=== PATIENT | male | born 1985 | race Caucasian/White ===

== ENCOUNTER 2022-07-16 06:57 | Emergency (ER) | payer OTHER, SELFPAY ==
[2022-07-16 07:05] VITALS: BP 132/89; PULSE 93; RESP 18; TEMP 36.6; O2SAT 96; BMI 30.4
--- NOTE | 2022-07-16 07:50 | DI.CT.S_ITS ---
PROCEDURE: CT ABDOMEN PELVIS W CON INDICATIONS: IV contrast only/abdominal pain/umbilical hernia TECHNIQUE: After the administration of intravenous contrast, axial sections acquired from the lung bases to the pubic symphysis. Coronal and sagittal reformats were performed. For radiation dose reduction, the following was used: automated exposure control, adjustment of mA and/or kV according to patient size. COMPARISON: None. FINDINGS: Image quality: Excellent. Lung bases: Dependent atelectasis. Heart: No significant findings. ABDOMEN: Liver: Unremarkable. Gallbladder: Probable small stones. No evidence of acute cholecystitis. Biliary ducts: Unremarkable. Pancreas: Unremarkable. Spleen: Unremarkable. Adrenal Glands: Unremarkable. Kidneys and Ureters: Unremarkable. Stomach and Bowel: Stomach, small bowel loops, and colon are unremarkable. Peritoneum: No abnormal intraperitoneal fluid. No free air. Ventral Wall: Diastasis recti with superimposed small umbilical hernia. No adjacent inflammation changes. Abdominal Nodes: No retroperitoneal or mesenteric adenopathy by size criteria. Vessels: Aorta and inferior vena cava are normal in size. PELVIS: Pelvic Organs: Mildly increased bladder wall thickening accounting for under distention. Bladder: Unremarkable. Pelvic Nodes: No enlarged lymph nodes. Miscellaneous: No hernias are seen. Bones: Unremarkable. IMPRESSION: 1. Diastasis recti with superimposed small umbilical hernia. No adjacent inflammation changes. 2. Mildly increased bladder wall thickening, accounting for underdistention. Findings may indicate cystitis. Correlate with urinalysis if necessary. Dictated by: Prasanth Briggs M.D. on 07/16/2022 at 8:17 Approved by: Prasanth Briggs M.D. on 07/16/2022 at 8:20
--- NOTE | 2022-07-16 07:51 | ED.ABDPAIN ---
HPI - Abdominal Pain General Chief Complaint: Upper Respiratory Symptoms Stated Complaint: umbilical hernia pain/chest congestion/dizzy Time Seen by Provider: 07/16/22 07:42 Source: patient Mode of arrival: Ambulatory History of Present Illness HPI narrative: Patient here for increased pain with his umbilical hernia. Diagnosed 3 weeks ago at the [facility]. Has been doing well. However earlier this morning developed a cough and has made his abdominal pain/hernia pain worse. No fever chills. No urinary complaints. The [facility] has made referral but there has been delay for surgical evaluation for his hernia. No changes in bowel movements or urination. Denies any problems with constipation. Does not smoke. Related Data Previous Rx's Medication Instructions Recorded benzonatate 100 mg capsule 100 mg PO TID PRN cough #20 caps 07/16/22 Allergies Allergy/AdvReac Type Severity Reaction Status Date / Time Penicillins Allergy Intermediate Rash Verified 07/16/22 08:06 Review of Systems Review of Systems Narrative: GENERAL: negative chills, fatigue, malaise, fever, sweats. HEENT: negative sinus pain, ear pain, sore throat RESPIRATORY: negative dyspnea, positive cough CARDIOVASCULAR: negative chest pain, palpitations GASTROINTESTINAL: negative nausea, vomiting, positive abdominal pain : negative dysuria, frequency, hematuria MUSCULOSKELETAL: negative muscle or bony pain SKIN: negative rash, skin lesions NEUROLOGIC: negative weakness, numbness ROS Unobtainable: All systems reviewed & are unremarkable except as noted in HPI and below Patient History Social History Smoking Status: Never smoker Smoking Status: Never smoker alcohol intake frequency: a few times a week Substance Use Type: does not use Exam Narrative Exam Narrative: GENERAL: in no distress, not toxic not dyspneic HEAD: Normocephalic. EYES: Pupils equal round ENT: Mucous membranes moist. NECK: Trachea midline. CARDIOVASCULAR: Regular rate and rhythm without murmurs RESPIRATORY: Clear to auscultation. Breath sounds equal bilaterally. No wheezes, rales, or rhonchi. GASTROINTESTINAL: Abdomen soft, there is reproducible umbilical tenderness, there is a reproducible umbilical hernia at the 12 o'clock position. Bowel sounds are present. No peritoneal signs. EXTREMITIES: No gross deformities. BACK: No flank tenderness. NEURO: AOx4. SKIN: Warm and dry PSYCH: Not anxious, is cooperative Initial Vital Signs Initial Vital Signs: Vital Signs Temperature 98 F 07/16/22 07:05 Pulse Rate 93 H 07/16/22 07:05 Respiratory Rate 18 07/16/22 07:05 Blood Pressure 132/89 07/16/22 07:05 Pulse Oximetry 96 07/16/22 07:05 Oxygen Delivery Method Room Air 07/16/22 07:05 Course Orders Ordered: Discontinued Medications Benzonatate (Benzonatate 100 Mg Capsule) 100 mg PO NOW ONE Stop: 07/16/22 07:50 Last Admin: 07/16/22 08:07 Dose: 100 mg Documented By: AMU Sodium Chloride (Normal Saline 0.9%) 1,000 mls @ 1,000 mls/hr IV BOLUS ONE Stop: 07/16/22 08:48 Last Infusion: 07/16/22 08:47 Dose: 0 mls/hr Documented By: Infusion: 07/16/22 08:46 Dose: 0 mls/hr Documented By: Admin: 07/16/22 08:07 Dose: 1,000 mls/hr Documented By: IDANIA Ketorolac Tromethamine (Ketorolac 30 Mg/Ml Vial) 15 mg IV NOW ONE Stop: 07/16/22 07:50 Last Admin: 07/16/22 08:07 Dose: 15 mg Documented By: TROYU Ondansetron HCl (Ondansetron 4 Mg/2 Ml Inj) 4 mg IV NOW ONE Stop: 07/16/22 07:50 Last Admin: 07/16/22 08:07 Dose: 4 mg Documented By: IDANIA Vital Signs Vital signs: Vital Signs - 8 hr 07/16/22 07:05 Temperature 98 F Pulse Rate 93 H Respiratory Rate 18 Blood Pressure 132/89 Pulse Oximetry 96 Oxygen Delivery Method Room Air MDM - Abdominal Pain Lab Data 07/16/22 07:20 07/16/22 07:20 Labs: Lab Results 07/16/22 07/16/22 07/16/22 Range/Units 07:20 07:20 07:20 WBC 7.4 (4.5-11.0) X10^3/uL RBC 4.71 (4.5-5.9) X10^6/uL Hgb 15.1 (13.5-17.5) g/dL Hct 43.6 (41-53) % MCV 92.4 (80-100) fL MCH 32.1 (26-34) PG MCHC 34.7 (30-36) % RDW 12.7 (11.6-14.8) % Plt Count 209 (150-400) X10^3/uL Neut % (Auto) 84.3 H (50-75) % Lymph % (Auto) 8.0 L (25-40) % Real % (Auto) 5.9 (3-14) % Eos % (Auto) 1.5 L (2-4) % Baso % (Auto) 0.3 (0-2) % Neut # (Auto) 6200 (9129-9218) /uL Lymph # (Auto) 600 L (2381-6001) /uL Real # (Auto) 400 (0-900) /uL Eos # (Auto) 100 (0-450) /uL Baso # (Auto) 0 (0-100) /uL Sodium 137 (137-145) mmol/L Potassium 4.5 (3.4-5.1) mmol/L Chloride 102 (98-107) mmol/L Carbon Dioxide 27 (22-32) mmol/L BUN 11 (9-20) mg/dL Creatinine 0.91 (0.66-1.25) mg/dL Estimated GFR > 60 (>60) mL/min BUN/Creatinine Ratio 12.1 (6-22) Glucose 102 H (70-100) mg/dL Calcium 9.1 (8.4-10.2) mg/dL Total Bilirubin 0.7 (0.2-1.3) mg/dL AST 46 (17-59) IU/L ALT 63 H (<50) IU/L Alkaline Phosphatase 102 (38-126) U/L Total Protein 7.7 (6.3-8.2) g/dL Albumin 4.5 (3.5-5.0) g/dL Globulin 3.2 (1.7-4.1) g/dL Albumin/Globulin Ratio 1.4 (1.0-2.8) Lipase 371 H (23-300) U/L SARS-CoV-2 (PCR) Positive H (Negative) Influenza A (RT-PCR) Flu a negative (NEGATIVE) Influenza B (RT-PCR) Flu b negative (NEGATIVE) RSV (PCR) Negative (Negative) Imaging Data CT scan - abdomen/pelvis: Radiologist's Impression: PROCEDURE:? CT ABDOMEN PELVIS W CON ? INDICATIONS:? IV contrast only/abdominal pain/umbilical hernia ? TECHNIQUE:? After the administration of intravenous contrast, axial sections acquired from the lung bases to the pubic symphysis.? Coronal and sagittal reformats were performed.? For radiation dose reduction, the following was used:? automated exposure control, adjustment of mA and/or kV according to patient size.? ? COMPARISON:? None. ? FINDINGS:? Image quality:? Excellent.? ? Lung bases:? Dependent atelectasis. Heart:? No significant findings. ? ABDOMEN: Liver:? Unremarkable.? ? Gallbladder:? Probable small stones.? No evidence of acute cholecystitis.? ? Biliary ducts:? Unremarkable.? ? Pancreas:? Unremarkable.? ? Spleen:? Unremarkable.? ? Adrenal Glands:? Unremarkable.? ? Kidneys and Ureters:? Unremarkable.? ? ? Stomach and Bowel:? Stomach, small bowel loops, and colon are unremarkable.? Peritoneum:? No abnormal intraperitoneal fluid.? No free air.? ? Ventral Wall: ? Diastasis recti with superimposed small umbilical hernia.? No adjacent inflammation changes. Abdominal Nodes:? No retroperitoneal or mesenteric adenopathy by size criteria.? Vessels:? Aorta and inferior vena cava are normal in size.? ? PELVIS: Pelvic Organs:? Mildly increased bladder wall thickening accounting for under distention. Bladder:? Unremarkable.? ? Pelvic Nodes: No enlarged lymph nodes.? Miscellaneous: No hernias are seen. ? ? ? Bones:? Unremarkable.? IMPRESSION:? 1. Diastasis recti with superimposed small umbilical hernia.? No adjacent inflammation changes. 2. Mildly increased bladder wall thickening, accounting for underdistention.? Findings may indicate cystitis.? Correlate with urinalysis if necessary.? ? Dictated by: Prasanth Briggs M.D. on 07/16/2022 at 8:17 ? ? Approved by: Prasanth Briggs M.D. on 07/16/2022 at 8:20 ? MDM Narrative Medical decision making narrative: Patient here for increased pain with his umbilical hernia. Diagnosed 3 weeks ago at the [facility]. Has been doing well. However earlier this morning developed a cough and has made his abdominal pain/hernia pain worse. No fever chills. No urinary complaints. [facility] has made referral but there has been delay for surgical evaluation for his hernia. No changes in bowel movements or urination. Denies any problems with constipation. Does not smoke. After history and exam CBC CMP CT abdomen and pelvis normal saline Toradol Zofran viral swab Tessalon Perle ordered [facility] CC: Abdominal pain Complicating co-morbidities: None Data collected from: Patient Medical records reviewed: No previous visits here for this complaint Differential considered: Includes but not limited to reducible hernia incarcerated hernia strangulated hernia upper respiratory infection Exam documented above, pertinent findings include: Tender umbilicus/reducible hernia Lab Test results independently reviewed as above. Pertinent findings: Positive COVID. WBC 7.4 Imaging studies independently reviewed: CT abdomen and pelvis positive for umbilical hernia. No incarceration/strangulation Treatments: Normal saline Tessalon Perle Toradol Re-evaluations: Pain improved. Reviewed results with patient. Return precautions reviewed with patient. Referral for General surgery given. Quarantine for 5 days reviewed with him. He desires discharge home. Discussion: Appropriate for discharge home. Exam laboratory studies imaging are reassuring. Referral for General surgery given. Prescription for Tessalon Perles provided. Dietary instructions to prevent constipation reviewed with him. Increased salads fruits vegetables and hydration. Not toxic at discharge. Hernia is reducible. Patient requiring supplemental oxygen. Appropriate for discharge home. No hypoxia or tachypnea Diagnosis: COVID infection/umbilical hernia. Discharge Plan Departure Patient Disposition: Home Clinical Impression: COVID-19, Hernia, umbilical Instructions: DI for Ventral Hernia, DI for COVID-19 (Suspected or Confirmed ) Activity Restrictions/Additional Instructions: Must quarantine 5 days starting today. You have been diagnosed with COVID. Please call provided general surgery office for evaluation of your umbilical hernia. Cough medication has been provided for you. May continue ibuprofen or Tylenol for pain. Return if worse if any questions or concerns. Prescriptions: New benzonatate 100 mg capsule 100 mg PO TID PRN (Reason: cough) Qty: 20 0RF Referrals: Natalie Hall MD [Physician] - Provider,Ferdinand ESTEVES [Primary Care Provider] - Stand Alone Forms: Patient Portal/API, Work Release Note
[2022-07-16 08:00] LABS: Add Manual Diff / Slide Review NO; Basophils Absolute Auto 0 /uL (0-100); Basophils Percent Auto 0.3 % (0-2); Eosinophils Absolute Auto 100 /uL (0-450); Eosinophils Percent Auto 1.5 % (2-4); Hematocrit 43.6 % (41-53); Hemoglobin 15.1 g/dL (13.5-17.5); Lymphocytes Absolute Auto 600 /uL (1100-4500); Mean Corpuscular HGB Conc 34.7 % (30-36); Mean Corpuscular Hemoglobin 32.1 PG (26-34); Mean Corpuscular Volume 92.4 fL (80-100); Monocytes Absolute Auto 400 /uL (0-900); Monocytes Percent Auto 5.9 % (3-14); Neutrophils Absolute Auto 6200 /uL (1500-7000); Neutrophils Percent Auto 84.3 % (50-75); Platelet Count 209 X10^3/uL (150-400); Red Blood Cell Count 4.71 X10^6/uL (4.5-5.9); Red Cell Distribution Width 12.7 % (11.6-14.8); White Blood Cell Count 7.4 X10^3/uL (4.5-11.0)
[2022-07-16 08:04] LABS: Alanine Aminotransferase 63 IU/L (<50); Albumin 4.5 g/dL (3.5-5.0); Albumin Globulin Ratio 1.4 (1.0-2.8); Alkaline Phosphatase 102 U/L (38-126); Aspartate Aminotransferase 46 IU/L (17-59); BUN Creatinine Ratio 12.1 (6-22); Bilirubin Total 0.7 mg/dL (0.2-1.3); Blood Urea Nitrogen 11 mg/dL (9-20); Calcium 9.1 mg/dL (8.4-10.2); Carbon Dioxide 27 mmol/L (22-32); Chloride 102 mmol/L (98-107); Estimated Glomerular Filt Rate > 60 mL/min (>60); Globulin 3.2 g/dL (1.7-4.1); Glucose 102 mg/dL (70-100); HEMOLYSIS < 15 (0-50); Lipase 371 U/L (23-300); Potassium 4.5 mmol/L (3.4-5.1); Sodium 137 mmol/L (137-145); Total Protein 7.7 g/dL (6.3-8.2)
[2022-07-16] MEDS: ONDANSETRON 4 MG/2 ML INJ IV (08:07)
[2022-07-16] MEDS: BENZONATATE 100 MG CAPSULE PO (08:07)
[2022-07-16] MEDS: KETOROLAC 30 MG/ML VIAL 15 MG IV (08:07)
[2022-07-16] MEDS: SODIUM CHLORIDE 0.9% 1,000 ML 1000 ML IV (08:07)
[2022-07-16 08:25] LABS: Influenza A - CEPHEID Flu A NEGATIVE (NEGATIVE); Influenza B - CEPHEID Flu B NEGATIVE (NEGATIVE); Respiratory Syncytial Virus Negative (Negative)
[2022-07-16 08:27] LABS: COVID-19 CEPHEID 4-PLEX PCR POSITIVE (Negative)
[2022-07-16 08:46] VITALS: BP 129/74; PULSE 90; RESP 18; O2SAT 100
== END 2022-07-16 08:47 | disposition home or self-care (01) ==
PROVIDERS: Emergency Provider Emergency Medicine
DX: U07.1 COVID-19 (principal); K42.9 Umbilical hernia without obstruction or gangrene
CPT/HCPCS: 0241U; 36415; 74177; 80053; 83690; 85025; 96361; 96374; 96375; 99284; J1885; J2405; Q9967

== ENCOUNTER 2022-08-25 10:52 | Day surgery (SDC) | payer OTHER, SELFPAY ==
[2022-08-24 14:34] VITALS: BMI 32.2
[2022-08-25] VITALS (7 sets, daily range): BP systolic 116–130; BP diastolic 75–95; PULSE 61–76; RESP 12–20; TEMP 35.7–36.7; O2SAT 97–100; BMI 32.2
[2022-08-25] MEDS: LACTATED RINGERS 1,000 ML 42 ML IV (11:46)
--- NOTE | 2022-08-25 12:39 | PM.PREOP ---
Pre-operative Note Interval Note History & Physical reviewed/Exam performed by Physician: Yes Changes to H&P: No
[2022-08-25] MEDS: CEFAZOLIN 2 GM/100 ML PREMIX 100 ML IV (12:45)
--- NOTE | 2022-08-25 12:47 | SUR.OPER ---
Supine on padded OR bed, head on pillow, arms secured on padded arm boards at <90 degrees abduction, legs uncrossed, safety belt at thigh, tape over blanket over lower legs.
[2022-08-25] MEDS: BUPIVACAINE 0.25% (PF) 30 ML, EPINEPHrine 0.15 MG INJ (13:15)
--- NOTE | 2022-08-25 13:45 | PM.OP.1 ---
Operative Date/Time/Diagnoses Date of procedure: 08/25/22 Time of procedure: 13:45 Pre-op diagnosis: Umbilical hernia, 2 cm, incarcerated. No gangrene no obstruction Post-op diagnosis: same Procedure & Clinicians Procedure: Umbilical hernia repair Same procedure as scheduled: Yes Indications: Symptomatic painful tender umbilical hernia Surgeon: Chen Barriga Admission Specialist: Olvin Lopes Anesthesia Type: General Operative Notes Prosthetic devices, grafts, tissues, transplants, or devices: Size small Ventralex mesh Procedure in detail: Patient was taken to the operating room in and placed supine on the operating room table. Bilateral SCDs were in place. General endotracheal anesthesia was induced preoperative antibiotics were provided. The abdomen was prepped and draped in the usual sterile fashion. A time-out was performed. Bupivacaine with epinephrine was infused around the umbilicus and incision was made in a curvilinear above the umbilicus using a 15 blade scalpel. This incision was carried down through the skin and the subcutaneous tissue until the hernia sac was encountered. I was able to dissect around the sac and with dissection return it to the abdomen. It initially was not reducible. The hernia defect was 2 cm in size. A size small Ventralex mesh was placed into the defect and secured to the fascial layer using 2 interrupted 0 Prolene sutures. Next a 0 Prolene suture was used in a [id number] fashion to close the defect over the mesh. Two interrupted 3-0 Vicryl sutures were used to close the subcutaneous tissue and the skin was closed with a running 4-0 Monocryl and dressed with Steri-Strips. Patient tolerated the procedure well and went in good condition to the postoperative care unit there were no complications. Complications: none Post-operative Condition: stable Disposition: PACU
[2022-08-25] MEDS: HYDROCODONE/ACET 5/325 TABLET 1 TAB PO (14:29)
== END 2022-08-25 14:44 | disposition home or self-care (01) ==
PROVIDERS: Referring Provider Surgery; Visit Provider Surgery
PROC: (CPT 49591; principal; 2022-08-25 12:30)
DX: K42.9 Umbilical hernia without obstruction or gangrene (principal)
CPT/HCPCS: 49591; J0171; J0330; J0690; J1100; J2250; J2405; J2704; J3010

== ENCOUNTER 2023-02-16 22:30 | Emergency (ER) | payer OTHER, SELFPAY ==
[2023-02-16 22:38] VITALS: BP 150/110; PULSE 102; RESP 20; TEMP 36.4; O2SAT 98; BMI 31.1
[2023-02-16 23:24] VITALS: BP 159/102; PULSE 92; RESP 24; O2SAT 96
[2023-02-16 23:29] VITALS: BP 159/102; PULSE 91; RESP 20; O2SAT 95
[2023-02-16 23:30] VITALS: BP 157/101; PULSE 86; RESP 22; O2SAT 96
[2023-02-16 23:51] VITALS: BP 157/101; PULSE 87
[2023-02-16] MEDS: LABETALOL 20 MG/4 ML SYRINGE IV (23:51)
[2023-02-16 23:59] VITALS: BP 138/93; PULSE 81; RESP 24; O2SAT 96
[2023-02-17] VITALS (8 sets, daily range): BP systolic 107–137; BP diastolic 67–93; PULSE 68–80; RESP 18–23; O2SAT 93–96
[2023-02-17 00:01] LABS: Add Manual Diff / Slide Review NO; Basophils Absolute Auto 100 /uL (0-100); Basophils Percent Auto 1.5 % (0-2); Eosinophils Absolute Auto 100 /uL (0-450); Eosinophils Percent Auto 1.7 % (2-4); Hemoglobin 14.1 g/dL (13.5-17.5); Lymphocytes Absolute Auto 1300 /uL (1100-4500); Lymphocytes Percent Auto 18.7 % (25-40); Mean Corpuscular HGB Conc 34.5 % (30-36); Mean Corpuscular Hemoglobin 32.2 PG (26-34); Mean Corpuscular Volume 93.4 fL (80-100); Monocytes Absolute Auto 400 /uL (0-900); Monocytes Percent Auto 5.6 % (3-14); Neutrophils Absolute Auto 5200 /uL (1500-7000); Neutrophils Percent Auto 72.5 % (50-75); Platelet Count 221 X10^3/uL (150-400); Red Blood Cell Count 4.39 X10^6/uL (4.5-5.9); Red Cell Distribution Width 12.6 % (11.6-14.8); White Blood Cell Count 7.2 X10^3/uL (4.5-11.0)
[2023-02-17 00:06] LABS: Alanine Aminotransferase 62 IU/L (<50); Albumin 4.3 g/dL (3.5-5.0); Albumin Globulin Ratio 1.4 (1.0-2.8); Alkaline Phosphatase 90 U/L (38-126); Aspartate Aminotransferase 41 IU/L (17-59); BUN Creatinine Ratio 11.7 (6-22); Bilirubin Total 0.5 mg/dL (0.2-1.3); Blood Urea Nitrogen 11 mg/dL (9-20); Calcium 8.8 mg/dL (8.4-10.2); Carbon Dioxide 21 mmol/L (22-32); Chloride 100 mmol/L (98-107); Estimated Glomerular Filt Rate > 60 mL/min (>60); Glucose 99 mg/dL (70-100); HEMOLYSIS 22 (0-50); Potassium 3.9 mmol/L (3.4-5.1); Sodium 136 mmol/L (137-145); Total Protein 7.3 g/dL (6.3-8.2)
--- NOTE | 2023-02-17 00:13 | ED_ITS ---
HPI - Headache General Chief Complaint: Headache Stated Complaint: headaches/high BP Time Seen by Provider: 02/16/23 22:41 Mode of arrival: Ambulatory History of Present Illness HPI Narrative: 37-year-old male former smoker with history of hypertension and chronic headaches presents for evaluation of headache. He states that he has been having a generalized headache for at least a week or 2. He denies any trauma or injury. Denies fever or chills and has no neck pain. He denies any blurred vision or extremity numbness, tingling or weakness. He denies chest pain or shortness of breath. He does occasionally have some nausea but denies any persistent vomiting. He has been seen and evaluated on multiple occasions including earlier today when he had his lisinopril increased from 10 mg to 20 mg. He had a CT at an outside facility a week or 2 ago which was without acute findings. He states his headache is relatively persistent and absent of any obvious provocation or palliation. Related Data Previous Rx's Medication Instructions Recorded docusate sodium 100 mg capsule 100 mg PO BID #30 caps 08/25/22 (Colace) ibuprofen 800 mg tablet 800 mg PO Q6H #14 tabs 08/25/22 Allergies Allergy/AdvReac Type Severity Reaction Status Date / Time Penicillins Allergy Intermediate Rash Verified 09/15/22 15:12 Review of Systems Review of Systems Narrative: GENERAL: Denies chills, fatigue, malaise, fever, sweats. HEENT: Denies sinus pain, ear pain, sore throat, difficulty swallowing, dizziness. RESPIRATORY: Denies dyspnea, cough, wheezing, hemoptysis, sputum. CARDIOVASCULAR: Denies chest pain, palpitations, orthopnea, edema, GASTROINTESTINAL: Denies nausea, vomiting, abdominal pain, diarrhea, constipation, melena. : Denies dysuria, frequency, incontinence, hematuria, urinary retention. MUSCULOSKELETAL: denies weakness, joint pain, or bony pain SKIN: Denies rash, skin lesions, or other NEUROLOGIC: See HPI PSYCHIATRIC: No concerning psychosocial issues. 12 point review of systems is negative except for those stated above Patient History Medical History Hx pulmonary embolism History of chest pain History of shortness of breath History of COVID-19 (07/16/22) Myopia of both eyes Esophagitis Hernia, umbilical Surgical History H/O wrist surgery Hx of appendectomy Social History household members: significant other and children Smoking Status: Former smoker alcohol intake: current Smoking Status: Former smoker alcohol intake frequency: a few times a week Substance Use Type: does not use Exam Narrative Exam Narrative: GENERAL: [37] year old patient appears stated age. Well-developed patient, in mild distress. HEAD: Atraumatic. Normocephalic. EYES: Pupils equal round and reactive. Extraocular motions intact. No scleral icterus. No injection or drainage. ENT: Nose without bleeding, purulent drainage. Throat without erythema, tonsillar hypertrophy or exudate. Airway patent. NECK: Trachea midline. Non tender CARDIOVASCULAR: Regular rate and rhythm without murmurs, gallops, or rubs. RESPIRATORY: Clear to auscultation. Breath sounds equal bilaterally. No wheezes, rales, or rhonchi. GASTROINTESTINAL: Abdomen soft, non-tender, nondistended. EXTREMITIES: No edema or joint tenderness. BACK: Nontender without deformity or crepitance. No flank tenderness. NEURO: AOx3. SKIN: No rash or erythema of visible areas Initial Vital Signs Initial Vital Signs: Vital Signs Temperature 97.6 F 02/16/23 22:38 Pulse Rate 102 H 02/16/23 22:38 Respiratory Rate 20 02/16/23 22:38 Blood Pressure 150/110 H 02/16/23 22:38 Pulse Oximetry 98 02/16/23 22:38 Oxygen Delivery Method Room Air 02/16/23 22:38 Course Orders Ordered: ED Orders 02/16/23 23:05 Complete Blood Count AUTO DIFF Stat Comprehensive Metabolic Panel Stat Discontinued Medications Hydrocodone Bitart/Acetaminophen (Hydrocodone/Acet 5/325 Prepack) 1 bottle MISC SEEINSTR ONE Stop: 02/17/23 01:40 Ketorolac Tromethamine (Ketorolac 30 Mg/Ml Vial) 15 mg IV NOW ONE Stop: 02/17/23 00:39 Last Admin: 02/17/23 00:45 Dose: 15 mg Documented By: BASHIR Labetalol HCl (Labetalol 20 Mg/4 Ml Syringe) 20 mg IV NOW ONE Stop: 02/16/23 23:48 Last Admin: 02/16/23 23:51 Dose: 20 mg Documented By: HNG Reevaluation(s) Reevaluation #1: Patient given labetalol 20 mg, in the aftermath blood pressure drops to the 130s over 90s, pulse down into the 70s with minimal if any improvement in symptoms Vital Signs Vital signs: Vital Signs - 8 hr 02/16/23 22:38 02/16/23 23:24 02/16/23 23:29 Temperature 97.6 F Pulse Rate 102 H 92 H Respiratory Rate 20 24 Blood Pressure 150/110 H 159/102 H 159/102 H Pulse Oximetry 98 96 Oxygen Delivery Method Room Air 02/16/23 23:29 02/16/23 23:30 02/16/23 23:30 Temperature Pulse Rate 91 H 86 Respiratory Rate 20 22 Blood Pressure 157/101 H Pulse Oximetry 95 96 Oxygen Delivery Method 02/16/23 23:51 02/16/23 23:59 02/16/23 23:59 Temperature Pulse Rate 87 81 Respiratory Rate 24 Blood Pressure 157/101 H 138/93 H Pulse Oximetry 96 Oxygen Delivery Method 02/17/23 00:00 02/17/23 00:00 02/17/23 00:13 Temperature Pulse Rate 79 80 Respiratory Rate 19 23 Blood Pressure 137/93 H Pulse Oximetry 95 95 Oxygen Delivery Method 02/17/23 00:13 02/17/23 00:15 02/17/23 00:15 Temperature Pulse Rate 77 Respiratory Rate 21 Blood Pressure 137/92 H 126/89 Pulse Oximetry 96 Oxygen Delivery Method 02/17/23 00:30 02/17/23 00:30 02/17/23 00:45 Temperature Pulse Rate 77 Respiratory Rate 19 Blood Pressure 130/82 126/77 Pulse Oximetry 95 Oxygen Delivery Method Room Air 02/17/23 00:45 02/17/23 01:00 02/17/23 01:00 Temperature Pulse Rate 77 72 Respiratory Rate 21 Blood Pressure 126/77 116/74 Pulse Oximetry 93 Oxygen Delivery Method Room Air 02/17/23 01:00 02/17/23 01:15 02/17/23 01:15 Temperature Pulse Rate 71 73 Respiratory Rate 21 19 Blood Pressure 117/74 Pulse Oximetry 94 94 Oxygen Delivery Method 02/17/23 01:30 02/17/23 01:30 Temperature Pulse Rate 68 Respiratory Rate 18 Blood Pressure 107/67 Pulse Oximetry 96 Oxygen Delivery Method MDM - Headache Lab Data 02/16/23 23:05 02/16/23 23:05 Labs: Lab Results 02/16/23 Range/Units 23:05 WBC 7.2 (4.5-11.0) X10^3/uL RBC 4.39 L (4.5-5.9) X10^6/uL Hgb 14.1 (13.5-17.5) g/dL Hct 41.0 (41-53) % MCV 93.4 (80-100) fL MCH 32.2 (26-34) PG MCHC 34.5 (30-36) % RDW 12.6 (11.6-14.8) % Plt Count 221 (150-400) X10^3/uL Neut % (Auto) 72.5 (50-75) % Lymph % (Auto) 18.7 L (25-40) % [place] % (Auto) 5.6 (3-14) % Eos % (Auto) 1.7 L (2-4) % Baso % (Auto) 1.5 (0-2) % Neut # (Auto) 5200 (8590-3176) /uL Lymph # (Auto) 1300 (1399-5771) /uL [place] # (Auto) 400 (0-900) /uL Eos # (Auto) 100 (0-450) /uL Baso # (Auto) 100 (0-100) /uL Sodium 136 L (137-145) mmol/L Potassium 3.9 (3.4-5.1) mmol/L Chloride 100 (98-107) mmol/L Carbon Dioxide 21 L (22-32) mmol/L BUN 11 (9-20) mg/dL Creatinine 0.94 (0.66-1.25) mg/dL Estimated GFR > 60 (>60) mL/min BUN/Creatinine Ratio 11.7 (6-22) Glucose 99 (70-100) mg/dL Calcium 8.8 (8.4-10.2) mg/dL Total Bilirubin 0.5 (0.2-1.3) mg/dL AST 41 (17-59) IU/L ALT 62 H (<50) IU/L Alkaline Phosphatase 90 (38-126) U/L Total Protein 7.3 (6.3-8.2) g/dL Albumin 4.3 (3.5-5.0) g/dL Globulin 3.0 (1.7-4.1) g/dL Albumin/Globulin Ratio 1.4 (1.0-2.8) MDM Narrative Medical decision making narrative: [37] year old patient presents with headache Headache considerations include, but not limited to: Subarachnoid hemorrhage, but unlikely as patient denies sudden onset of pain, not worst of life, or neck pain Meningitis considered, but thought unlikely given lack of Brudzinski's, Kernig's sign, altered mental status or fever Giant cell arteritis considered, but thought unlikely given lack of unilateral findings, pain in religion, vision change HTN Emergency considered, but thought unlikely given normal vitals Other serious diagnoses considered unlikely given lack of red flag findings such as sudden onset, increasing frequency, immunocompromise, systemic signs (fever, chills, stiff neck, or rash), focal neurologic findings, trauma, blood thinners, etc. Prior Charts reviewed in our EMR Primary Historian: patient Labs reviewed and interpreted by myself: No specific abnormalities requiring intervention Patient's symptoms improved over duration of stay with above-stated therapies. Findings and discharge diagnosis discussed with patient/family followed by verbalization of understanding Return precautions discussed with patient/family whom verbalize understanding of diagnosis and plan Discharge Plan Departure Patient Disposition: Home Clinical Impression: Headache, Hypertension Instructions: High Blood Pressure, DI for Headache Activity Restrictions/Additional Instructions: *You have been diagnosed with [ Headache ] *What to do: *Take medications as directed *Follow up with your primary care provider in 2-3 days, call for an appointment. Let them know you were seen in the Emergency Department and that we ask that you be seen in follow up *Return to ER if you should have any new, worsening or concerning symptoms, such as [ fever > 101F, neck pain or stiffness, vomiting, confusion, seizure, focal weakness, vision change, speech deficit or other concerning symptoms ] Prescriptions: No Action docusate sodium [Colace] 100 mg capsule 100 mg PO BID Qty: 30 0RF Rx Instructions: Take while taking Vicodin for pain to prevent constipation. You may take any additional [id number] medication for constipation if you develop constipation or please do not hesitate to call the office for advice. ibuprofen 800 mg tablet 800 mg PO Q6H Qty: 14 0RF Rx Instructions: Take with food every 6 hours for 2-5 days. Alternate with Vicodin so that you are taking some pain medicine every 3 hours. Take around the clock until you no longer need Vicodin at all, then you may begin to wean down the amount of ibuprofen that you are taking. Referrals: ProviderFerdinand [Primary Care Provider] - Stand Alone Forms: Patient Portal/API
[2023-02-17] MEDS: KETOROLAC 30 MG/ML VIAL 15 MG IV (00:45)
[2023-02-17] MEDS: HYDROCODONE/ACET 5/325 PREPACK 1 BOTTLE MISC (01:45)
== END 2023-02-17 01:50 | disposition home or self-care (01) ==
PROVIDERS: Emergency Provider Emergency Medicine
DX: R51.9 Headache, unspecified (principal); I10 Essential (primary) hypertension
CPT/HCPCS: 36415; 80053; 85025; 96374; 96375; 99284; J1885

== ENCOUNTER 2023-04-16 23:11 | Emergency (ER) | payer OTHER, SELFPAY ==
[2023-04-16 23:20] VITALS: BP 129/89; PULSE 89; RESP 18; TEMP 36.3; O2SAT 98; BMI 30.4
--- NOTE | 2023-04-17 00:31 | ED.GENADULT ---
HPI - General Adult General Chief complaint: Urogenital-Male Stated complaint: lower back pain, abd pain Time Seen by Provider: 04/16/23 23:56 Source: patient Mode of arrival: Ambulatory History of Present Illness HPI narrative: 37-year-old male with history of hypertension presents for 10 days of left-sided lumbar back pain. He states that he will occasionally get a sensation that it goes into his groin, however it is mostly isolated over his lower left spine. States that he Google his symptoms and was concerned that he may have a problem with his kidneys. Denies issues with urination. Reports occasional nausea. Has been taking Tylenol at home with improvement in symptoms. Denies trauma Related Data Previous Rx's Medication Instructions Recorded docusate sodium 100 mg capsule 100 mg PO BID #30 caps 08/25/22 (Colace) ibuprofen 800 mg tablet 800 mg PO Q6H #14 tabs 08/25/22 methocarbamol 500 mg tablet 500 mg PO TID #30 tabs 04/17/23 methylprednisolone 4 mg tablets in See Rx Instructions PO .COMPLEX 04/17/23 a dose pack (Medrol (Magdi)) #21 ea Allergies Allergy/AdvReac Type Severity Reaction Status Date / Time Penicillins Allergy Intermediate Rash Verified 09/15/22 15:12 Review of Systems Review of Systems Narrative: Negative except as noted above Patient History Medical History Hx pulmonary embolism History of chest pain History of shortness of breath History of COVID-19 (07/16/22) Myopia of both eyes Esophagitis Hernia, umbilical Surgical History H/O wrist surgery Hx of appendectomy Social History household members: significant other and children Smoking Status: Former smoker alcohol intake: current Smoking Status: Former smoker alcohol intake frequency: a few times a week Substance Use Type: does not use Exam Initial Vital Signs Initial Vital Signs: Vital Signs Temperature 97.3 F L 04/16/23 23:20 Pulse Rate 89 04/16/23 23:20 Respiratory Rate 18 04/16/23 23:20 Blood Pressure 129/89 04/16/23 23:20 Pulse Oximetry 98 04/16/23 23:20 Oxygen Delivery Method Room Air 04/16/23 23:20 Const: Awake, alert, no acute distress, nontoxic appearing Cardiac: regular rate, regular rhythm RESP: unlabored, clear bilaterally, no wheezing GI: Atraumatic, soft, nontender MSK back: No midline tenderness, L lower lumbar paraspinal muscle spasm, negative straight leg raise bilaterally Skin: Warm, Dry, intact, no rashes Neuro: AO x3, CN II-XII grossly intact, moves all extremities Course Course Course Narrative: Well-appearing patient with lumbar back pain for 10 days, improved with Tylenol. Patient reports he is mostly concerned that there may be a problem with his kidneys. Patient has no CVA tenderness bilaterally, his location of maximal pain is located left lower lumbar paraspinal region and is reproducible to palpation. Very low suspicion for kidney process, however we will get baseline laboratory work and urinalysis. Orders Ordered: ED Orders 04/17/23 00:40 CBC Auto Diff [Complete Blood Count AUTO DIFF] Stat CMP [Comprehensive Metabolic Panel] Stat Discontinued Medications Ketorolac Tromethamine (Ketorolac 30 Mg/Ml Vial) 15 mg IV NOW ONE Stop: 04/17/23 00:29 Last Admin: 04/17/23 00:38 Dose: 15 mg Documented By: WINSOME Lidocaine (Lidocaine 5% Patch) 1 each TOP DAILY [facility] Lidocaine (Lidocaine 5% Patch) 1 each TOP NOW ONE Stop: 04/17/23 00:42 Last Admin: 04/17/23 00:45 Dose: 1 each Documented By: WINSOME Methocarbamol (Methocarbamol 500 Mg Tablet) 500 mg PO NOW ONE Stop: 04/17/23 00:29 Last Admin: 04/17/23 00:42 Dose: Not Given Documented By: WINSOME Reevaluation(s) Reevaluation #1: Laboratory work is negative for acute findings. No abnormalities and urinalysis. Patient reported minimal improvement in symptoms after medications, however based on location and description of symptoms it is most likely a musculoskeletal strain at this time. Patient was counseled to alternate Tylenol and Motrin as needed for pain and to apply heat or ice as desired for comfort. Short prescription for muscle relaxer sent to pharmacy of choice. PCP follow-up advised. Discharge instructions. Vital Signs Vital signs: Vital Signs - 8 hr 04/16/23 23:20 04/17/23 01:30 Temperature 97.3 F L Pulse Rate 89 69 Respiratory Rate 18 16 Blood Pressure 129/89 128/84 Pulse Oximetry 98 97 Oxygen Delivery Method Room Air Room Air Medical Decision Making Lab Data 04/17/23 00:40 04/17/23 00:40 Labs: Lab Results 04/17/23 Range/Units 00:40 WBC 6.2 (4.5-11.0) X10^3/uL RBC 4.06 L (4.5-5.9) X10^6/uL Hgb 13.2 L (13.5-17.5) g/dL Hct 38.5 L (41-53) % MCV 94.7 (80-100) fL MCH 32.5 (26-34) PG MCHC 34.3 (30-36) % RDW 13.3 (11.6-14.8) % Plt Count 256 (150-400) X10^3/uL Neut % (Auto) 59.3 (50-75) % Lymph % (Auto) 28.7 (25-40) % Hinds % (Auto) 9.7 (3-14) % Eos % (Auto) 1.4 L (2-4) % Baso % (Auto) 0.9 (0-2) % Neut # (Auto) 3700 (1661-5621) /uL Lymph # (Auto) 1800 (6242-8237) /uL Hinds # (Auto) 600 (0-900) /uL Eos # (Auto) 100 (0-450) /uL Baso # (Auto) 100 (0-100) /uL Sodium 134 L (137-145) mmol/L Potassium 4.3 (3.4-5.1) mmol/L Chloride 103 (98-107) mmol/L Carbon Dioxide 24 (22-32) mmol/L BUN 14 (9-20) mg/dL Creatinine 0.82 (0.66-1.25) mg/dL Estimated GFR > 60 (>60) mL/min BUN/Creatinine Ratio 17.1 (6-22) Glucose 98 (70-100) mg/dL Calcium 8.8 (8.4-10.2) mg/dL Total Bilirubin 0.5 (0.2-1.3) mg/dL AST 34 (17-59) IU/L ALT 51 H (<50) IU/L Alkaline Phosphatase 73 (38-126) U/L Total Protein 6.8 (6.3-8.2) g/dL Albumin 4.0 (3.5-5.0) g/dL Globulin 2.8 (1.7-4.1) g/dL Albumin/Globulin Ratio 1.4 (1.0-2.8) Urine Dip Bedside Urine Glucose Negative Bedside Urine Bilirubin - Negative Bedside Urine Ketone - Negative Urine Specific [place] 1.005 Bedside Urine Occult Blood - Negative Bedside Urine pH 6.0 Bedside Urine Protein - Negative Bedside Urine Urobilinogen - Negative Bedside Urine Nitrite - Negative Bedside Urine Leukocytes - Negative Esterase Point of care testing: Urine Dip Bedside Urine Glucose Negative Bedside Urine Bilirubin - Negative Bedside Urine Ketone - Negative Urine Specific [place] 1.005 Bedside Urine Occult Blood - Negative Bedside Urine pH 6.0 Bedside Urine Protein - Negative Bedside Urine Urobilinogen - Negative Bedside Urine Nitrite - Negative Bedside Urine Leukocytes - Negative Esterase Discharge Plan Departure Patient Disposition: Home Clinical Impression: Low back strain Instructions: DI for Back Strain or Sprain Prescriptions: New methocarbamol 500 mg tablet 500 mg PO TID Qty: 30 0RF methylprednisolone [Medrol (Magdi)] 4 mg tablets,dose pack See Rx Instructions .ROUTE .COMPLEX Qty: 21 0RF Rx Instructions: orally per package directions No Action docusate sodium [Colace] 100 mg capsule 100 mg PO BID Qty: 30 0RF Rx Instructions: Take while taking Vicodin for pain to prevent constipation. You may take any additional [id number] medication for constipation if you develop constipation or please do not hesitate to call the office for advice. ibuprofen 800 mg tablet 800 mg PO Q6H Qty: 14 0RF Rx Instructions: Take with food every 6 hours for 2-5 days. Alternate with Vicodin so that you are taking some pain medicine every 3 hours. Take around the clock until you no longer need Vicodin at all, then you may begin to wean down the amount of ibuprofen that you are taking. Referrals: Provider,Ferdinand ESTEVES [Primary Care Provider] - Stand Alone Forms: Patient Portal/API
[2023-04-17] MEDS: KETOROLAC 30 MG/ML VIAL 15 MG IV (00:38)
[2023-04-17] MEDS: LIDOCAINE 5% PATCH 1 EACH TOP (00:45)
[2023-04-17 00:48] LABS: Add Manual Diff / Slide Review NO; Basophils Absolute Auto 100 /uL (0-100); Basophils Percent Auto 0.9 % (0-2); Eosinophils Absolute Auto 100 /uL (0-450); Eosinophils Percent Auto 1.4 % (2-4); Hematocrit 38.5 % (41-53); Hemoglobin 13.2 g/dL (13.5-17.5); Lymphocytes Absolute Auto 1800 /uL (1100-4500); Lymphocytes Percent Auto 28.7 % (25-40); Mean Corpuscular HGB Conc 34.3 % (30-36); Mean Corpuscular Hemoglobin 32.5 PG (26-34); Mean Corpuscular Volume 94.7 fL (80-100); Monocytes Absolute Auto 600 /uL (0-900); Monocytes Percent Auto 9.7 % (3-14); Neutrophils Absolute Auto 3700 /uL (1500-7000); Neutrophils Percent Auto 59.3 % (50-75); Platelet Count 256 X10^3/uL (150-400); Red Blood Cell Count 4.06 X10^6/uL (4.5-5.9); Red Cell Distribution Width 13.3 % (11.6-14.8); White Blood Cell Count 6.2 X10^3/uL (4.5-11.0)
[2023-04-17 00:58] LABS: Alanine Aminotransferase 51 IU/L (<50); Albumin Globulin Ratio 1.4 (1.0-2.8); Alkaline Phosphatase 73 U/L (38-126); Aspartate Aminotransferase 34 IU/L (17-59); BUN Creatinine Ratio 17.1 (6-22); Bilirubin Total 0.5 mg/dL (0.2-1.3); Blood Urea Nitrogen 14 mg/dL (9-20); Calcium 8.8 mg/dL (8.4-10.2); Carbon Dioxide 24 mmol/L (22-32); Chloride 103 mmol/L (98-107); Estimated Glomerular Filt Rate > 60 mL/min (>60); Globulin 2.8 g/dL (1.7-4.1); Glucose 98 mg/dL (70-100); HEMOLYSIS 35 (0-50); Potassium 4.3 mmol/L (3.4-5.1); Sodium 134 mmol/L (137-145); Total Protein 6.8 g/dL (6.3-8.2)
[2023-04-17 01:30] VITALS: BP 128/84; PULSE 69; RESP 16; O2SAT 97
== END 2023-04-17 01:30 | disposition home or self-care (01) ==
PROVIDERS: Emergency Provider Emergency Medicine
DX: S39.012A Strain of muscle, fascia and tendon of lower back, initial encounter (principal); X50.9XXA Other and unspecified overexertion or strenuous movements or postures, initial encounter
CPT/HCPCS: 36415; 80053; 81003; 85025; 96374; 99283; 99284; J1885